=== PATIENT | female | born 1965 | race Hispanic/Latino ===

== ENCOUNTER 2020-11-01 11:49 | Emergency (ER) | payer SELFPAY ==
--- OUTSIDE RECORDS SUMMARY | 2020-11-01 11:52 | XMS REPORT | Continuity of Care Document ---
:[address] [facility] t Address [address] [place] [address] Care Team Providers Name Role Phone Singer GOMES Attending Clinician Claudia MCGEE Attending Clinician Claudia MCGEE Admitting Clinician Problems This patient has no known problems. Allergies, Adverse Reactions, Alerts This patient has no known allergies or adverse reactions. Medications This patient has no known medications. Procedures This patient has no known procedures. Encounters Start End Encounter Admission Attending Care Care Encounter Source Date/Time Date/Time Type Type Clinicians Facility Department ID 2019-07-11 2019-07-12 Emergency Franko Lindsay [facility] [id number] 15:02:55 16:05:00 Messi Taylor [id number] [place] [id number] [place] [id number] Results This patient has no known results.
[2020-11-01] MEDS ORDERED: ONDANSETRON 4 MG/2 ML VIAL ONE ×2 (12:37→14:03)
[2020-11-01 12:48] LABS: Absolute Lymphocytes (CBC) 0.4 K/uL (0.7-4.9); Basophils % 0.3 % (0-1.3); Hematocrit 27.4 % (36.0-45.0); Lymphocytes % 15.8 % (15.3-44.8); MPV 9.9 fL (7.6-11.3); RBC Red Blood Cell Count 4.11 M/uL (3.86-4.86)
[2020-11-01] MEDS ORDERED: MAGNES/ALUMIN/SIMET 30ML UCUP ONE (12:56)
[2020-11-01] MEDS ORDERED: LIDOCAINE VISCOUS 2% SOLN 15 ML UDC ONE (12:56)
[2020-11-01 13:08] LABS: ALT/SGPT 19 U/L (12-78); AST/SGOT 14 U/L (15-37); Albumin 3.2 g/dL (3.4-5.0); Alkaline Phosphatase 61 U/L (45-117); BUN Blood Urea Nitrogen 8 mg/dL (7-18); Bicarbonate 25 mmol/L (21-32); Bilirubin Direct 0.1 mg/dL (0-0.2); Bilirubin Total 0.3 mg/dL (0.2-1.0); Glucose Level 118 mg/dL (74-106); Lipase 83 U/L (73-393); Potassium 3.4 mmol/L (3.5-5.1); Protein, Total 7.1 g/dL (6.4-8.2); Sodium Level 141 mmol/L (136-145)
[2020-11-01 13:46] LABS: Blood Morphology Comment NOTED (NOT SEEN); Hypochromasia 1+; Platelet Estimate ADEQ; White Blood Cell Scan OK (OK)
--- NOTE | 2020-11-01 14:22 | EDPHYS ---
Physician Documentation [facility] Name: Beverly Tripp Age: 54 yrs Sex: Female : 1965 Arrival Date: 11/01/2020 Time: 11:50 Bed 20 Private MD: Reggie Devine E ED Physician Mitch Jones HPI: 11/01 12:53 This 54 yrs old Female presents to ER via Ambulatory with complaints of jr8 Abdominal Pain. 12:53 The patient presents with abdominal pain in the epigastric area. Onset: The jr8 symptoms/episode began/occurred gradually, 1 week(s) ago. The symptoms do not radiate. Associated signs and symptoms: Pertinent positives: nausea. The symptoms are described as burning. Modifying factors: The symptoms are alleviated by nothing, the symptoms are aggravated by food. Severity of pain: At its worst the pain was mild in the emergency department the pain is unchanged. The patient has not experienced similar symptoms in the past. The patient has not recently seen a physician. Patient stated that her and her family had unknown URI last week. All had cleared up but she started to have nausea that has now been persistent with upper burning abdominal discomfort . 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 - Social history:: Smoking status: Patient/guardian denies using. ROS: 12:53 Eyes: Negative for injury, pain, redness, and discharge, ENT: Negative for injury, jr8 pain, and discharge, Neck: Negative for injury, pain, and swelling, Cardiovascular: Negative for chest pain, palpitations, and edema, Respiratory: Negative for shortness of breath, cough, wheezing, and pleuritic chest pain, Back: Negative for injury and pain, MS/Extremity: Negative for injury and deformity, Skin: Negative for injury, rash, and discoloration, Neuro: Negative for headache, weakness, numbness, tingling, and seizure. 12:53 Abdomen/GI: Positive for abdominal pain, nausea, Negative for vomiting, diarrhea, constipation. Exam: 12:53 Eyes: Pupils equal round and reactive to light, extra-ocular motions intact. Lids and jr8 lashes normal. Conjunctiva and sclera are non-icteric and not injected. Cornea within normal limits. Periorbital areas with no swelling, redness, or edema. ENT: Nares patent. No nasal discharge, no septal abnormalities noted. Tympanic membranes are normal and external auditory canals are clear. Oropharynx with no redness, swelling, or masses, exudates, or evidence of obstruction, uvula midline. Mucous membranes moist. Neck: Trachea midline, no thyromegaly or masses palpated, and no cervical lymphadenopathy. Supple, full range of motion without nuchal rigidity, or vertebral point tenderness. No Meningismus. Cardiovascular: Regular rate and rhythm with a normal S1 and S2. No gallops, murmurs, or rubs. Normal PMI, no JVD. No pulse deficits. Respiratory: Lungs have equal breath sounds bilaterally, clear to auscultation and percussion. No rales, rhonchi or wheezes noted. No increased work of breathing, no retractions or nasal flaring. Back: No spinal tenderness. No costovertebral tenderness. Full range of motion. Skin: Warm, dry with normal turgor. Normal color with no rashes, no lesions, and no evidence of cellulitis. MS/ Extremity: Pulses equal, no cyanosis. Neurovascular intact. Full, normal range of motion. Neuro: Awake and alert, GCS 15, oriented to person, place, time, and situation. Cranial nerves II-XII grossly intact. Motor strength 5/5 in all extremities. Sensory grossly intact. Cerebellar exam normal. Normal gait. 12:53 Abdomen/GI: Inspection: abdomen appears normal, Bowel sounds: active, all quadrants, Palpation: soft, in all quadrants, mild abdominal tenderness, in the epigastric area, mass, is not appreciated, rebound tenderness, is not appreciated, voluntary guarding, is not appreciated, involuntary guarding, is not appreciated, no appreciated organomegaly, Indicators: McBurney's point is not tender, Workman's sign is negative, Rovsing's sign is negative. Vital Signs: 11:55 BP 102 / 86; Pulse 59; Resp 16; Temp 98.3; Pulse Ox 100% ; Weight 70.76 kg; Height 5 rb3 ft. 5 in. (165.10 cm); 12:30 BP 111 / 63; Pulse 48; Resp 16; Pulse Ox 96% ; rb3 13:30 BP 119 / 65; Pulse 49; Resp 17; Pulse Ox 99% ; rb3 14:30 BP 123 / 74; Pulse 61; Resp 17; Pulse Ox 100% ; rb3 11:55 Body Mass Index 25.96 (70.76 kg, 165.10 cm) rb3 MDM: 12:00 Patient medically screened. [facility] 14:20 Data reviewed: vital signs, nurses notes, lab test result(s), and as a result, I will jr8 discharge patient. Data interpreted: Pulse oximetry: on room air is 99 %. Interpretation: normal. Counseling: I had a detailed discussion with the patient and/or guardian regarding: the historical points, exam findings, and any diagnostic results supporting the discharge/admit diagnosis, lab results, the need for outpatient follow up, a family practitioner, to return to the emergency department if symptoms worsen or persist or if there are any questions or concerns that arise at home. ED course: Discussed with patient that the persistent nausea is most likely from COVID. Will treat with antiemetics but that nothing else can be done from an emergent stand point. Recommended f/u with PCP within a week. Patient good with this . 11/01 12:11 Order name: Basic Metabolic Panel [facility] 11/01 12:11 Order name: CBC with Diff [facility] 11/01 12:11 Order name: Hepatic Function [facility] 11/01 12:11 Order name: Lipase [facility] 11/01 12:12 Order name: Basic Metabolic Panel; Complete Time: 13:47 EDMS 11/01 12:12 Order name: CBC with Automated Diff; Complete Time: 13:47 EDMS 11/01 12:12 Order name: Liver (Hepatic) Function; Complete Time: 13:47 EDMS 11/01 12:12 Order name: Lipase; Complete Time: 13:47 EDMS 11/01 13:40 Order name: SARS-COV-2 RT PCR; Complete Time: 13:47 EDMS 11/01 13:46 Order name: CBC Smear Scan; Complete Time: 13:47 EDMS 11/01 12:11 Order name: IV Saline Lock; Complete Time: 12:47 [facility] 06/03 12:11 Order name: Labs collected and sent; Complete Time: 12:47 jr8 11/01 12:11 Order name: Urine Dipstick-Ancillary (obtain specimen); Complete Time: 12:47 8 Administered Medications: 12:35 Drug: Zofran (Ondansetron) 4 mg Route: IVP; Site: right antecubital; rb3 12:50 Follow up: Response: No adverse reaction; Nausea is decreased rb3 12:48 Drug: GI Cocktail without - (Maalox Suspension 30 ml, Lidocaine Liquid 2 % 15 rb3 ml) Route: PO; 13:07 Follow up: Response: No adverse reaction rb3 13:49 Drug: Zofran (Ondansetron) 4 mg Route: IVP; Site: right antecubital; rb3 14:10 Follow up: Response: No adverse reaction; Nausea is decreased rb3 Disposition: 16:48 Co-signature as Attending Physician, Mitch Jones MD I agree with the assessment and kdr plan of care. Disposition: 11/01/20 14:22 Discharged to Home. Impression: COVID-19, Nausea. - Condition is Stable. - Discharge Instructions: Nausea, Adult, COVID-19. - Prescriptions for promethazine 25 mg Oral Tablet - take 1 tablet by ORAL route every 6 hours As needed; 20 tablet. - Medication Reconciliation Form, Thank You Letter, Antibiotic Education, Prescription Opioid Use form. - Follow up: Reggie Devine MD; When: 1 week; Reason: Recheck today's complaints, Continuance of care, Re-evaluation by your physician. - Problem is new. - Symptoms have improved. Signatures: Dispatcher [employer] EDMS Mitch Jones MD MD [facility] Raciel Stone PA PA jr8 Charity Johnson, RN RN rb3 Corrections: (The following items were deleted from the chart) 12:45 12:13 CORONAVIRUS+MR.LAB.BRZ ordered. EDMS EDMS 13:46 13:12 Manual Differential ordered. EDMS EDMS 15:03 14:22 11/01/2020 14:22 Discharged to Home. Impression: COVID-19; Nausea. Condition is rb3 Stable. Forms are Medication Reconciliation Form, Thank You Letter, Antibiotic Education, Prescription Opioid Use. Follow up: Reggie Devine; When: 1 week; Reason: Recheck today's complaints, Continuance of care, Re-evaluation by your physician. Problem is new. Symptoms have improved. jr8
--- NOTE | 2020-11-01 14:22 | ER ---
Nurse's Notes [facility] Name: Beverly Tripp Age: 54 yrs Sex: Female : 1965 Arrival Date: 11/01/2020 Time: 11:50 Bed 20 Private MD: Reggie Devine E Diagnosis: COVID-19;Nausea Presentation: 11/01 11:55 Chief complaint: Patient states: Was sick last week most symptoms have improved. C/o of rb3 persistent nausea and abdominal cramping. 11:55 Coronavirus screen: fatigue, nausea. Ebola Screen: Patient denies travel to an rb3 Ebola-affected area in the 21 days before illness onset. Initial Sepsis Screen: Does the patient meet any 2 criteria? No. Patient's initial sepsis screen is negative. Risk Assessment: Do you want to hurt yourself or someone else? Patient reports no desire to harm self or others. Onset of symptoms was October 28, 2020. 11:55 Method Of Arrival: Ambulatory 3 11:55 Acuity: TATE 3 rb3 Triage Assessment: 11:55 General: Appears uncomfortable, Behavior is calm, cooperative, Reports fatigue for rb3 Denies fever. Pain: Complains of pain in suprapubic area Quality of pain is described as crampy. Neuro: Level of Consciousness is awake, alert, obeys commands, Oriented to person, place, time, situation. Cardiovascular: Capillary refill < 3 seconds Patient's skin is warm and dry. Respiratory: Airway is patent Respiratory effort is even, unlabored, Respiratory pattern is regular, symmetrical. GI: Reports nausea. : No signs and/or symptoms were reported regarding the genitourinary system. 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 - Social history:: Smoking status: Patient/guardian denies using. Screenin:55 Abuse screen: Denies threats or abuse. Nutritional screening: No deficits noted. rb3 Tuberculosis screening: No symptoms or risk factors identified. Fall Risk None identified. Assessment: 11:55 General: See triage assessment. rb3 12:30 Reassessment: Patient appears in no apparent distress at this time. Patient and/or rb3 family updated on plan of care and expected duration. Pain level reassessed. Patient is alert, oriented x 3, equal unlabored respirations, skin warm/dry/pink. 13:30 Reassessment: Patient appears in no apparent distress at this time. No changes from rb3 previously documented assessment. 14:30 Reassessment: Patient appears in no apparent distress at this time. Patient and/or rb3 family updated on plan of care and expected duration. Pain level reassessed. Patient is alert, oriented x 3, equal unlabored respirations, skin warm/dry/pink. Patient denies pain at this time. Vital Signs: 11:55 BP 102 / 86; Pulse 59; Resp 16; Temp 98.3; Pulse Ox 100% ; Weight 70.76 kg; Height 5 rb3 ft. 5 in. (165.10 cm); 12:30 BP 111 / 63; Pulse 48; Resp 16; Pulse Ox 96% ; rb3 13:30 BP 119 / 65; Pulse 49; Resp 17; Pulse Ox 99% ; rb3 14:30 BP 123 / 74; Pulse 61; Resp 17; Pulse Ox 100% ; rb3 11:55 Body Mass Index 25.96 (70.76 kg, 165.10 cm) rb3 ED Course: 11:50 Patient arrived in ED. as 11:51 Reggie Devine MD is Private Physician. as 11:55 Raciel Stone PA is [facility]. jr8 11:55 Mitch Jones MD is Attending Physician. jr8 11:55 Arm band placed on right wrist. rb3 11:55 Patient has correct armband on for positive identification. Bed in low position. Call rb3 light in reach. Side rails up X 1. Pulse ox on. NIBP on. Warm blanket given. 12:07 Charity Johnson, RN is Primary Nurse. rb3 12:10 Triage completed. rb3 12:35 Inserted saline lock: 20 gauge in right antecubital area, using aseptic technique. rb3 Blood collected. 14:22 Reggie Devine MD is Referral Physician. jr8 15:02 No provider procedures requiring assistance completed. IV discontinued, intact, rb3 bleeding controlled, No redness/swelling at site. Pressure dressing applied. Administered Medications: 12:35 Drug: Zofran (Ondansetron) 4 mg Route: IVP; Site: right antecubital; rb3 12:50 Follow up: Response: No adverse reaction; Nausea is decreased rb3 12:48 Drug: GI Cocktail without - (Maalox Suspension 30 ml, Lidocaine Liquid 2 % 15 rb3 ml) Route: PO; 13:07 Follow up: Response: No adverse reaction rb3 13:49 Drug: Zofran (Ondansetron) 4 mg Route: IVP; Site: right antecubital; rb3 14:10 Follow up: Response: No adverse reaction; Nausea is decreased rb3 Outcome: 14:22 Discharge ordered by . an[place]eta 15:02 Discharged to home ambulatory, with family. rb3 15:02 Condition: stable 15:02 Discharge instructions given to patient, Instructed on discharge instructions, follow up and referral plans. medication usage, Demonstrated understanding of instructions, follow-up care, medications, Prescriptions given X 1. 15:03 Patient left the ED. rb3 Signatures: Amaris Byrd Josh, PA PA jr8 Charity Johnson, RN RN rb3
[2020-11-01 15:09] VITALS: TEMP 98.3
[2020-11-01 15:14] VITALS: BP 123/74; O2SAT 100
== END 2020-11-01 15:03 | disposition home or self-care (01) ==
LOC: ER 11:49
DX: U07.1 COVID-19 (principal); R10.13 Epigastric pain; Z85.42 Personal history of malignant neoplasm of other parts of uterus
CPT/HCPCS: 36415; 80048; 80076; 83690; 85025; 96374; 99284; J2405; U0003

== ENCOUNTER → 2023-08-20 | Emergency (ER) | payer SELFPAY ==
[~2023-08-20] MED LIST: HYDROCODONE/APAP 7.5/325 MG TAB ONE; LIDOCAINE 1% MPF 5 ML VIAL ONE; LIDOCAINE HCL JELLY 2% 6 ML SYRINGE TOP ONE
--- OUTSIDE RECORDS SUMMARY | 2023-08-20 15:13 | XMS REPORT | Continuity of Care Document ---
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 10.0 /100 WBCs. The reference range was not used to interpret this result as normal/abnormal. NRBC x10^3 (test code = 7945159048) <0.01 See_Comment [Automated messa ge] The system which generated this result transmitted reference range: 10*3/?L. The reference range was not used to interpret this result as normal/abnormal. GRAN MAT (NEUT) % (test code = 770-8) 52.3 % IMM GRAN % (test code = 6705313687) 0.20 % LYMPH % (test code = 736-9) 35.5 % MONO % (test code = 5905-5) 8.1 % EOS % (test code = 713-8) 3.0 % BASO % (test code = 706-2) 0.9 % GRAN MAT x10^3(ANC) (test code = 3892226603) 2.25 10*3/uL 1.88-7.09 IMM GRAN x10^3 (test code = 6073407190) <0.03 0-0.06 LYMPH x10^3 (test code = 731-0) 1.53 10*3/uL 1.32-3.29 MONO x10^3 (test code = 742-7) 0.35 10*3/uL 0.33-0.92 EOS x10^3 (test code = 711-2) 0.13 10*3/uL 0.03-0.39 BASO x10^3 (test code = 704-7) 0.04 10*3/uL 0.01-0.07 Lab Interpretation (test code = 19804-1) [facility] 1 [id number] 22:08:30Findings and Impression: ?Clear lungs. No focal consolidation. No pleuraleffusion or pneumothorax. Heart size is borderline enlarged. Multilevel chronic left upper rib deformities. Rounded density projectingalong the inferior tip of the patella may represent posttraumatic deformityand/or fracture fragment. Other etiology cannot be completely excluded onsingle AP view. PORTABLE CHEST RADIOGRAPH His tory: chest pain Comparison: None available. TECHNIQUE: AP view of the chest. [facility], Radiant ResultsInft User - 07/11/2019 4:09 PM CSTPORTABLE CHEST RADIOGRAPHHistory: chest pain Comparison: None available.TECHNIQUE: AP view of the chest.IMPRESSIONFindings and Impression: Clear lungs. No focal conso lidation. No pleuraleffusion or pneumothorax. Heart size is borderline enlarged. Multilevel chronicleft upper rib deformities. Rounded density projectingalong the inferior tip of the patella may represent posttraumatic deformityand/or fracture fragment. Other etiology cannot be completely excludedonsingle AP view. [facility] CenterTROPONIN [id number] 22:08:00* Test Item Value Reference Range Interpretation Comme nts TROPONIN I (test code = 4003945972) <0.012 See_Comment [Automated message] The system which generated this result transmitted reference range: <=0.034 ng/mL. The reference range was not used to interpret this result as normal/abnormal. BETY (test code = BETY) Equal or Less than 0.034 ng/ml---Normal ?Note: Cardiac troponin begins to rise 3-4 hours after the onset of ischemia. Repeat in 4-6 hours if the sample was drawn within 3-4 hours of the onset of the symptom and found normal. Between 0.035 and 0.120 ng/mL--- Borderline. Questionable myocardial injury or necrosis ? ?Note: Serial measurement may be necessary to confirm or exclude the diagnosis of myocardial injury or necrosis; Clinical correlation (symptoms, EKGs, imaging studies, and others) required; Repeat in 4-6 hours if clinically indicated. ? Equal or Higher than 0.121 ng/mL---Abnormal. Myocardial Injury or Necrosis Likely ? Biotin has been reported to cause a negative bias, interpret results relative to patient's use of biotin. ? Lab Interpretation (test code = 42507-5) Normal [facility] CenterPROTHROMBIN TIME / [id number] 21:59:00* Test Item Value Reference Range Interpretation Comme [facility] PROTIME PATIENT (test code = 5964-2) See_Comment [Automated messa ge] The system which generated this result transmitted reference range: 12.0 - 14.7 Seconds. The reference range was not used to interpret this result as normal/abnormal. INR (test code = 6301-6) Normal INR <1.1; Warfarin Therapeutic range 2.0 to 3.0 or 2.5 to 3.5, depending upon the indications. Lab Interpretation (test code = 14408-1) Normal [facility] CenterCOMP. METABOLIC PANEL ([id number])2019-07-11 21:56:00* Test Item Value Reference Range Interpretation Comme nts NA (test code = 6355476241) 139 mmol/L 135-145 K (test code = 1724532641) 3.8 mmol/L 3.5-5 CL (test code = 4797509842) 106 mmol/L 98-108 CO2 TOTAL (test code = 7541464101) 25 mmol/L 23-31 AGAP (test code = 2828917854) 2-16 BUN (test code = 6515611026) 11 mg/dL 7-23 GLUCOSE (test code = 9735422729) 122 mg/dL 70-110 H CREATININE (test code = 7296454691) 0.55 mg/dL 0.5-1.04 TOTAL BILI (test code = 3427738816) 0.3 mg/dL 0.1-1.1 CALCIUM (test code = 1527349362) 9.3 mg/dL 8.6-10.6 T PROTEIN (test code = 8641138620) 7.0 g/dL 6.3-8.2 ALBUMIN (test code = 5602189699) 4.1 g/dL 3.5-5 ALK PHOS (test code = 2437512923) 46 U/L 34-122 ALTv (test code = 1742-6) 12 U/L 5-35 AST(SGOT) (test code = 3191054873) 18 U/L 13-40 eGFR Calculation (Non-) (test code = 6905450651) mL/min/1.73m2 eGFR Calculation () (test code = 7322936432) mL/min/1.73m2 BETY (test code = BETY) Association of Glomerular Filtration Rate (GFR) and Staging of Kidney Disease* + --+ --+ ------+| GFR (mL/min/1.73 m2) ?| With Kidney Damage ?| ?Without Kidney Damage+ --------+ --------+ +| ?>90 ?| ?Stage one ?| ? Normal ?+ ---+ ---+ -------+| ?60-89 ?| ?Stage two ?| ? Decreased GFR ? + --+ --+ ------+| ?30-59 ?| ?Stage three ?| ? Stage three ? + --+ --+ ------+| ?15-29 ?| ?Stage four ? | ? Stage four ?+ ---+ ---+ -------+| ?<15 (or dialysis) ? ?| ?Stage five ? | ? Stage five ?+ ---+ ---+ -------+ *Each stage assumes the associated GFR level has been in effect for at least three months. ?Stages 1 to 5, with or without kidney disease, indicate chronic kidney disease. Notes: Determination of stages one and two (with eGFR >59mL/min/1.73 m2) requires estimation of kidney damage for at least three months as defined by structural or functional abnormalities of the kidney, manifested by either:Pathological abnormalities or Markers of kidney damage (including abnormalities in the composition of the blood or urine or abnormalities in imaging tests). Lab Interpretation (test code = 00897-8) Abnormal [facility] CenterLIPASE, [id number] 21:56:00* Test Item Value Reference Range Interpretation Comme [facility] LIPASE (test code = 5781608925) 54 U/L 0-220 Lab Interpretation (test cod e = 62939-2) Normal [facility] CenteraPTT2020-02-10 21:53:00* Test Item Value Reference Range Interpretation Comme [facility] APTT Patient (test code = 3173-2) See_Comment [Automated message] The system which generated this result transmitted reference range: 23 - 38 Seconds. The reference range was not used to interpret this result as normal/abnormal. BETY (test code = BETY) The [facility] patient population mean normal value for aPTT is 30 seconds. Lab Interpretation (test code = 10412-0) Normal [facility]"
--- NOTE | 2023-08-20 17:12 | RAD REPORT ---
EXAM DESCRIPTION: CT - Facial Bones W/ Mpr - 08/20/2023 4:44 pm CLINICAL HISTORY: Facial injury with pain status post fall COMPARISON: None TECHNIQUE: Computed axial tomography of the face was obtained. Coronal and sagittal reconstruction w as performed. All CT scans are performed using dose optimization technique as appropriate and may include automated exposure control or mA/KV adjustment according to patient size. FINDINGS: A fracture is not seen. Deviation of the nasal septum A TMJ dislocation is not noted. The globes are intact. Fluid within the sinuses is not seen. IMPRESSION: Negative for a facial fracture.
--- NOTE | 2023-08-20 17:12 | RAD REPORT ---
EXAM DESCRIPTION: CT - Head C Spine Mpr Wo Con - 08/20/2023 4:42 pm CLINICAL HISTORY: Head and neck injury status post fall. Head and neck pain COMPARISON: None. TECHNIQUE: Computed axial tomography of the head and cervical spine was obtained. Sagittal and coronal reconstruction was performed. All CT scans are performed using dose optimization technique as appropriate and may include automated exposure control or mA/KV adjustment according to patient size. FINDINGS: An intracranial bleed is not seen. The ventricles are normal in caliber. No significant hypodensity within the brain. An extra-axial fluid collection is not noted. Fluid within the visualized sinuses and mastoids is not seen A cervical fracture is not visualized. No dislocation is noted. Mild anterior subluxation C4 on C5. Slight posterior subluxation C5 on C6 and C6 on C7. Spondylosis d istal cervical spine IMPRESSION: No acute intracranial abnormality is seen. A cervical fracture is not visualized. If the patient continues to have symptoms to suggest intracranial /spinal cord/ligamentous pathology then MRI would be recommended
--- NOTE | 2023-08-20 17:59 | EDPHYS ---
Physician Documentation [facility] Name: Beverly Tripp Age: 57 yrs Sex: Female : 1965 Arrival Date: 08/20/2023 Time: 15:08 Bed Treatment Private MD: Chon Ruano HPI: 08/19 15:50 This 57 yrs old Female presents to ER via Ambulatory with complaints of cp Laceration To Scalp/Face, Head Injury Without LOC-Adult. 15:50 The patient has a laceration related to: falling from standing with face wooden table, cp occurred at home. 15:50 The laceration(s) is(are) located on the face and upper lip. Onset: The cp symptoms/episode began/occurred just prior to arrival. Associated signs and symptoms: Pertinent positives: neck pain, Pertinent negatives: heavy bleeding, numbness distal to injury. 15:50 Patient reports losing balance and falling forward striking face against wooden table. cp Does not believe she lost consciousness. Historical: - Allergies: 15:37 No Known Allergies; mb9 - PMHx: 15:37 uterine cancer; chronic back pain; mb9 - PSHx: 15:37 None; mb9 - Immunization history:: Adult Immunizations up to date. - Social history:: Smoking status: Patient denies any tobacco usage or history of. ROS: 15:55 Neuro: Positive for headache, Negative for altered mental status, loss of cp consciousness, 15:55 Constitutional: Negative for body aches, chills, fever, cp 15:55 Neck: Positive for stiffness, tenderness, 15:55 Cardiovascular: Negative for chest pain, 15:55 Respiratory: Negative for cough, shortness of breath, wheezing, 15:55 Abdomen/GI: Negative for vomiting, diarrhea, constipation, 15:55 Back: Negative for pain at rest, pain with movement, 15:55 Skin: Positive for laceration(s), of the upper lip, 15:55 All other systems are negative, Exam: 16:00 Constitutional: The patient appears in no acute distress, alert, awake, cp non-diaphoretic, non-toxic, well developed, well nourished, 16:00 Head/face: Noted is multiple contusions with mild swelling to forehead, right cp infraorbital area, upper lip, tenderness to palpation. 16:00 Eyes: Pupils: equal, round, and reactive to light and accomodation, Extraocular movements: intact throughout, Conjunctiva: normal, no exudate, no injection, Lids and lashes: appear normal, bilaterally, 16:00 ENT: External ear(s): are unremarkable, Nose: Nasal septum: is midline, bleeding, is not appreciated, Mouth: Lips: 2 cm vertical laceration noted mid upper lip that extends from philtrum through vermilion border, Tongue: is normal, Posterior pharynx: Airway: no evidence of obstruction, patent, Dental exam: no acute changes, 16:00 Neck: C-spine: C-collar placed in ED, vertebral tenderness, that is mild, appreciated at C4, C5 and C6, crepitus, is not appreciated, ROM/movement: pain, that is mild, with any movement, 16:00 Chest/axilla: Inspection: normal, 16:00 Cardiovascular: Rate: normal, Rhythm: regular, 16:00 Respiratory: the patient does not display signs of respiratory distress, Respirations: normal, no use of accessory muscles, no retractions, labored breathing, is not present, Breath sounds: are clear throughout, no decreased breath sounds, no stridor, no wheezing, 16:00 Abdomen/GI: Exam negative for discomfort, distension, guarding, Inspection: abdomen appears normal, 16:00 Back: pain, is absent, ROM is normal, vertebral tenderness, is not appreciated, 16:00 Neuro: Orientation: to person, place \T\ time. Mentation: is normal, Motor: moves all fours, strength is normal, Sensation: is normal, Vital Signs: 15:36 BP 124 / 84; Pulse 88; Resp 18; Temp 98; Pulse Ox 100% ; Weight 72.57 kg; Height 5 ft. mb9 6 in. ; Pain 8/10; 16:43 BP 122 / 78; Pulse 84; Resp 16; Pulse Ox 99% on R/A; kd3 18:42 BP 107 / 82; Pulse 78; Resp 18; Pulse Ox 99% on R/A; kd3 15:36 Body Mass Index 25.82 (72.57 kg, 167.64 cm) mb9 15:36 Pain Scale: Adult mb9 Laceration: 18:00 Wound Repair of 2cm ( 0.8in ) subcutaneous laceration to upper lip. Linear shaped.. cp Distal neuro/vascular/tendon intact. Anesthesia: Wound infiltrated with 2 mls of 1% lidocaine. Wound prep: Simple cleansing by me. Skin closed with 3 6-0 Vicryl using simple sutures and sterile technique. Patient tolerated well. MDM: 15:40 Patient medically screened. cp 16:00 Differential diagnosis: superficial laceration, concussion, fracture, dental injury, cp intracranial bleed. 17:57 Data reviewed: vital signs, nurses notes, radiologic studies, CT scan, and as a result, I will discharge patient. 17:57 I considered the following discharge prescriptions or medication management in the emergency department Medications were administered in the Emergency Department. See MAR. Counseling: I had a detailed discussion with the patient and/or guardian regarding the historical points, exam findings, and any diagnostic results supporting the discharge/admit diagnosis, radiology results, to return to the emergency department if symptoms worsen or persist or if there are any questions or concerns that arise at home. Response to treatment: the patient's symptoms have markedly improved after treatment, and as a result, I will discharge patient. Special discussion: Based on the patient's history, exam and DX evaluation, there is no indication for emergent intervention or inpatient TX. It is understood by the patient/guardian that if the SXs persist or worsen they need to return immediately for re-evaluation. 08/19 15:42 Order name: CT Head C Spine; Complete Time: 17:16 08/19 15:42 Order name: CT Facial Bones W/O Con; Complete Time: 17:16 08/19 17:16 Interpretation: Report reviewed. 08/19 15:42 Order name: Dressing - Wound; Complete Time: 18:20 08/19 15:42 Order name: Gloves, Sterile; Complete Time: 18:20 08/19 15:42 Order name: Setup Suture Tray; Complete Time: 18:20 Administered Medications: 16:13 Drug: Hydrocodone-Acetaminophen PO (7.5 mg-325 mg) 1 tabs PO once; RASS on ADMIN: kd3 Combtv4, Very Agttd3, Agttd2, Rstlss1, AlertClm0, Drwsy-1, Lt Sdtn-2, Mod Sdtn-3, Dp Sdtn-4, UnArsble-5 Route: PO; 18:43 Follow up: Response: No adverse reaction; Pain is decreased kd3 17:32 Drug: Lidocaine Mucous Membrane Gel 2 % 1 ea 15 ml Mucous Membrane once Volume: 15 ml; kd3 Route: Mucous Membrane; 18:43 Follow up: Response: No adverse reaction kd3 18:21 Drug: Lidocaine Infiltration (1 %) 5 ml 5 ml Infiltration once; to bedside {Note: kd3 administered by provider .} Volume: 5 ml; Route: Infiltration; 18:43 Follow up: Response: No adverse reaction kd3 Disposition Summary: 08/20/23 17:58 Discharge Ordered Notes: Location: Home cp Problem: new cp Symptoms: have improved cp Condition: Stable cp Diagnosis - Laceration without foreign body of unspecified part of head, initial encounter cp - Contusion of other part of head, initial encounter cp - Fall on same level from slipping, tripping and stumbling with subsequent striking cp against object Followup: cp - With: Private Physician - When: 2 - 3 days - Reason: Worsening of condition Discharge Instructions: - Discharge Summary Sheet cp - Facial or Scalp Contusion cp - Head Injury, Adult cp - Facial Laceration cp - Sutured Wound Care cp Forms: - Medication Reconciliation Form cp - Thank You Letter cp - Antibiotic Education cp - Prescription Opioid Use cp - Patient Portal Instructions cp - Leadership Thank You Letter cp Prescriptions: - Cephalexin 250 mg Oral capsule - take 1 capsule ORAL route every 8 hours for 7 days; 21 capsule; Refills: 0, cp Product Selection Permitted Signatures: Dispatcher [employer] EDMS Chon Proctor PA PA cp Hayley Arellano RN RN kd3 Landy Mixon RN RN mb9 Corrections: (The following items were deleted from the chart) 08/20 17:30 08/19 15:50 The patient has a laceration related to: falling from standing with face cp striking shelf, occurred at home, cp
--- NOTE | 2023-08-20 17:59 | ER ---
Nurse's Notes [facility] Name: Beverly Tripp Age: 57 yrs Sex: Female : 1965 Arrival Date: 08/20/2023 Time: 15:08 Bed Treatment Private MD: Diagnosis: Laceration without foreign body of unspecified part of head, initial encounter;Contusion of other part of head, initial encounter;Fall on same level from slipping, tripping and stumbling with subsequent striking against object Presentation: 08/19 15:36 Chief complaint: Patient states: "I cut my lip on a wooden table. I didn't pass out or mb9 hit my head.". Coronavirus screen: Vaccine status: Patient reports being unvaccinated. Ebola Screen: No symptoms or risks identified at this time. Complicating Factors: There are no complicating factors for this patient. Initial Sepsis Screen: Does the patient meet any 2 criteria? No. Patient's initial sepsis screen is negative. Does the patient have a suspected source of infection? No. Patient's initial sepsis screen is negative. Risk Assessment: Do you want to hurt yourself or someone else? Patient reports no desire to harm self or others. Onset of symptoms was August 20, 2023. 15:36 Acuity: TATE 4 mb9 15:36 Method Of Arrival: Ambulatory mb9 Triage Assessment: 15:37 General: Appears in no apparent distress. Behavior is calm, cooperative. Pain: mb9 Complains of pain in mouth. Neuro: Perkins Agitation-Sedation Scale (RASS): 0 - Alert and Calm Level of Consciousness is awake, alert, obeys commands, Oriented to person, place, time, situation, Appropriate for age. Respiratory: Airway is patent Respiratory effort is even, unlabored, Respiratory pattern is regular, symmetrical. : No signs and/or symptoms were reported regarding the genitourinary system. Musculoskeletal: Range of motion: intact in all extremities. Injury Description: Laceration sustained to mouth is jagged, 0.5 to 2.5 cm long, not bleeding. Historical: - Allergies: 15:37 No Known Allergies; mb9 - PMHx: 15:37 uterine cancer; chronic back pain; mb9 - PSHx: 15:37 None; mb9 - Immunization history:: Adult Immunizations up to date. - Social history:: Smoking status: Patient denies any tobacco usage or history of. Screenin:41 [facility] ED Fall Risk Assessment (Adult) History of falling in the last 3 months, kd3 including since admission No falls in past 3 months (0 pts) Confusion or Disorientation No (0 pts) Intoxicated or Sedated No (0 pts) Impaired Gait No (0 pts) Mobility Assist Device Used No (0 pt) Altered Elimination No (0 pt) Score/Fall Risk Level 0 - 2 = Low Risk Oriented to surroundings. Abuse screen: Denies threats or abuse. Denies injuries from another. Nutritional screening: No deficits noted. Tuberculosis screening: No symptoms or risk factors identified. Assessment: 16:13 General: Appears in no apparent distress. Behavior is calm, cooperative. Pain: kd3 Complains of pain in mouth. Neuro: Level of Consciousness is awake, alert, obeys commands, Oriented to person, place, time, situation. Respiratory: Airway is patent Trachea midline Respiratory effort is even, unlabored, Respiratory pattern is regular, symmetrical. Injury Description: Laceration sustained to mouth. 16:14 General: c collar placed by provider . kd3 16:47 General: Pt returned to the room from CT via wheelchair . kd3 Vital Signs: 15:36 BP 124 / 84; Pulse 88; Resp 18; Temp 98; Pulse Ox 100% ; Weight 72.57 kg; Height 5 ft. mb9 6 in. ; Pain 8/10; 16:43 BP 122 / 78; Pulse 84; Resp 16; Pulse Ox 99% on R/A; kd3 18:42 BP 107 / 82; Pulse 78; Resp 18; Pulse Ox 99% on R/A; kd3 15:36 Body Mass Index 25.82 (72.57 kg, 167.64 cm) mb9 15:36 Pain Scale: Adult mb9 ED Course: 15:11 Patient arrived in ED. im 15:14 Chon Proctor PA is PHCP. cp 15:14 Chon Oropeza MD is Attending Physician. cp 15:37 Triage completed. mb9 15:37 Arm band placed on. mb9 16:13 Hayley Arellano, DORY is Primary Nurse. kd3 16:41 CT Head C Spine In Process Unspecified. EDMS 16:41 CT Facial Bones W/O Con In Process Unspecified. EDMS 18:41 No provider procedures requiring assistance completed. Patient did not have IV access kd3 during this emergency room visit. 18:42 Patient has correct armband on for positive identification. Provided Education on: kd3 script . Administered Medications: 16:13 Drug: Hydrocodone-Acetaminophen PO (7.5 mg-325 mg) 1 tabs PO once; RASS on ADMIN: kd3 Combtv4, Very Agttd3, Agttd2, Rstlss1, AlertClm0, Drwsy-1, Lt Sdtn-2, Mod Sdtn-3, Dp Sdtn-4, UnArsble-5 Route: PO; 18:43 Follow up: Response: No adverse reaction; Pain is decreased kd3 17:32 Drug: Lidocaine Mucous Membrane Gel 2 % 1 ea 15 ml Mucous Membrane once Volume: 15 ml; kd3 Route: Mucous Membrane; 18:43 Follow up: Response: No adverse reaction kd3 18:21 Drug: Lidocaine Infiltration (1 %) 5 ml 5 ml Infiltration once; to bedside {Note: kd3 administered by provider .} Volume: 5 ml; Route: Infiltration; 18:43 Follow up: Response: No adverse reaction kd3 Medication: 18:42 VIS not applicable for this client. kd3 Outcome: 17:58 Discharge ordered by . cp 18:41 Discharged to home ambulatory, kd3 18:41 Condition: stable 18:41 Discharge instructions given to patient, Instructed on discharge instructions, follow up and referral plans. Demonstrated understanding of instructions, follow-up care, medications, Prescriptions given X 1, 18:43 Patient left the ED. kd3 Signatures: Dispatcher [employer] EDMS Chon Proctor PA PA cp Doucette, Kyli, RN RN kd3 Landy Mixon RN RN mb9 Rosibel Goldberg
[2023-08-20 19:07] VITALS: BP 107/82; TEMP 98; O2SAT 99
== END ==
LOC: ER 15:08
PROC: 0HQ1XZZ Repair Face Skin, External Approach (ICD-10-PCS; principal; 2023-08-20)
DX: S01.511A Laceration without foreign body of lip, initial encounter (principal); W01.10XA Fall on same level from slipping, tripping and stumbling with subsequent striking against unspecified object, initial encounter
CPT/HCPCS: 70450; 70486; 72125; 76377; 99283; J2001